=== PATIENT | male | born 1970 | race African-American/Black ===

== ENCOUNTER 2016-10-20 15:27 | Emergency (ER) | payer OTHER ==
--- NOTE | 2016-10-20 16:05 | EDM.PDOC ---
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 Patient brought an MSDS forms to show weight he been exposed to and indicates he feels like there is sand and/or particulate matter in both eyes] Review of systems: As per history of present illness and below otherwise all systems reviewed and negative. Past medical history: As per history of present illness and as reviewed below otherwise noncontributory. Surgical history: As per history of present illness and as reviewed below otherwise noncontributory. Social history: No reported history of drug or alcohol abuse. Family history: As per history of present illness and as reviewed below otherwise noncontributory. Physical exam: HEENT: Atraumatic, normocephalic, pupils reactive, bilateral eyes erythematous, watering with active photophobia, mucous membranes moist, throat clear, neck supple, nontender, trachea midline. Lungs: Clear to auscultation, breath sounds equal bilaterally, chest nontender. Heart: S1S2, regular, negative for clicks, rubs, or JVD. Abdomen: Soft, nondistended, nontender. Negative for masses or hepatosplenomegaly. Negative for costovertebral tenderness. Pelvis: Stable nontender. Genitourinary: Deferred. Rectal: Deferred. Extremities: Atraumatic, negative for cords or calf pain. Neurovascular unremarkable. Neuro: Awake, alert, oriented. Cranial nerves II through XII unremarkable. Cerebellum unremarkable. Motor and sensory unremarkable throughout. Exam nonfocal. Patient presenting with raw meat he scleral and conjunctiva, status post caustic chemical exposure at work. Dialogue with who agreed to accept patient for transfer for further evaluation and/or treatment in his office immediately post ER discharge Diagnostics: [Visual acuity] Therapeutics: [IV normal saline, morphine, irrigate each eye with 1 L of normal saline via Alejandro lense] Impression: [Eye irritation] Plan: [Area bilateral eyes, pain management, followup immediately post ER with Dr. Dukes at his office.] Definitive disposition and diagnosis as appropriate pending reevaluation and review of above. - Related Data Allergies/ADRs: Allergies No Known Allergies Allergy (Verified 10/20/16 15:46) Home Meds: Ambulatory Orders Medication Instructions Recorded Confirmed Lisinopril 10/20/16 ED ROS GENERAL - Review of Systems Review Of Systems: See Below (The history of present illness) ED EXAM GENERAL W FULL EYE - Physical Exam Exam: See Below (The history of present illness) Departure - Departure Time of Disposition: 16:36 Disposition: DC/Tfer to Other 70 Condition: good Clinical Impression: Chemical injury of eye Qualifiers: Encounter type: initial encounter Laterality: unspecified laterality Qualified Code(s): T26.40XA - Burn of unspecified eye and adnexa, part unspecified, initial encounter Forms: ED Department Discharge Additional Instructions: The following information is given to patients seen in the emergency department who are being discharged to home. This information is to outline your options for follow-up care. We provide all patients seen in our emergency department with a follow-up referral. The need for follow-up, as well as the timing and circumstances, are variable depending upon the specifics of your emergency department visit. If you don't have a primary care physician on staff, we will provide you with a referral. We always advise you to contact your personal physician following an emergency department visit to inform them of the circumstance of the visit and for follow-up with them and/or the need for any referrals to a consulting specialist. The emergency department will also refer you to a specialist when appropriate. This referral assures that you have the opportunity for follow-up care with a specialist. All of these measure are taken in an effort to provide you with optimal care, which includes your follow-up. Under all circumstances we always encourage you to contact your private physician who remains a resource for coordinating your care. When calling for follow-up care, please make the office aware that this follow-up is from your recent emergency room visit. If for any reason you are refused follow-up, please contact the [facility] Emergency Department at and asked to speak to the emergency department charge nurse. Transfer to Dr. Dukes office as discussed he will meet you immediately upon discharge from the ER to further evaluate and treat your eye injury Return to the ER as needed as discussed
[2016-10-20] MEDS ORDERED: Sodium Chloride 0.9% 1,000 ML IV ONE (16:26)
[2016-10-20] MEDS ORDERED: Morphine 10 MG/ML Syringe IV ONE (16:26)
[2016-10-20] MEDS ORDERED: Ondansetron 4 MG/2 ML SDV IVPUSH ONE (16:28)
[2016-10-20] MEDS ORDERED: Proparacaine 0.5% Ophth Soln 15 ML Bottle EYEBOTH ONE (16:28)
[2016-10-20 18:39] VITALS: BP 168/104
== END 2016-10-20 17:53 | disposition other institution (70) ==
LOC: MW.ED 15:27
DX: T26.40XA Burn of unspecified eye and adnexa, part unspecified, initial encounter (principal); X58.XXXA Exposure to other specified factors, initial encounter
CPT/HCPCS: 96361; 96374; 96375; 99283; J2270; J2405; J7040

== ENCOUNTER 2022-03-24 07:44 | Day surgery (SDC) | payer OTHER ==
[~2022-03-24 07:44] MED LIST: Lactated Ringers 1,000 ML IV SCH
[2022-03-24] MEDS ORDERED: fentaNYL 100 MCG/2 ML SDV ONE (08:17)
[2022-03-24] MEDS ORDERED: Propofol 200 MG/20 ML SDV ONE (08:17)
[2022-03-24] MEDS ORDERED: Lidocaine 2% 5 ML SDV ONE (08:17)
[2022-03-24 09:55] VITALS: BP 134/89; PULSE 57
== END 2022-03-24 10:20 | disposition home or self-care (01) ==
LOC: MW.SDS 07:44
PROVIDERS: ATTEND Surgery
DX: Z12.11 Encounter for screening for malignant neoplasm of colon (principal); K21.9 Gastro-esophageal reflux disease without esophagitis; I10 Essential (primary) hypertension; F17.210 Nicotine dependence, cigarettes, uncomplicated; E66.9 Obesity, unspecified; Z80.0 Family history of malignant neoplasm of digestive organs; Z79.899 Other long term (current) drug therapy; Z68.38 Body mass index [BMI] 38.0-38.9, adult
CPT/HCPCS: 45378; J2704; J3010; J7120